=== PATIENT | female | born 1965 | race African-American/Black ===

== ENCOUNTER 2025-04-18 11:31 | Outpatient (CLI) | payer OTHER, SELFPAY ==
--- NOTE | ~2025-04-18 | XR_ITS ---
Cervical Spine: AP, lateral, open-mouth views Clinical History: Pain Findings: There is straightening of the normal cervical lordosis. No fracture. There is minimal grade 1 anterolisthesis of C4 over C5. There is moderate degenerative disc narrowing at C6-C7. There are m ild facet joint degenerative changes. Pre-vertebral soft tissues are unremarkable. Impression: Mild degenerative spondylosis. Minimal grade 1 anterolisthesis of C4 over C5. Reviewed, dictated and finalized at location . Impression: Mild degenerative spondylosis. Minimal grade 1 anterolisthesis of C4 over C5.
--- OUTSIDE RECORDS SUMMARY | 2025-04-18 11:57 | XMS_ITS | Data Portability ---
[facility] Organization [facility] Address [address] [place] [address] Care Team Providers Care Carpenters Helper Name Role Phone FABIANA KAT Primary Care Provider Assessment No assessment recorded. Plan of Treatment Reminders Order Date Submit Date Provider Last Modified By Organization Details Last Modified Time Details Appointments None recorded . Lab cobalami n and folate panel, serum 2024 025 JOSE Labhailey, [address], [place], [address], 5 06:20:07 CMP, serum or plasma 2024 025 JOSE oGodman, [address], [place], [address], 5 06:20:06 lipid panel, serum 2024 025 JOSE Goodman, [address], [place], [address], 5 06:20:04 HbA1c (hemoglo bin A1c), blood 2024 025 JOSE Goodman, [address], [address], [place], [address], 5 06:20:08 CBC 2024 025 JOSE Goodman, [address], [place], [address], 5 06:20:09 RPR (rapid plasma reagin), serum 2023 024 JOSE Goodman, [address], [address], [place], [address], 4 06:20:58 HIV 1 + 2, meaningf ul use set 2023 024 JOSE Goodman, [address], [place], [address], 4 06:20:58 chlamydi a trachoma tis + neisseri a gonorrho eae + trichomo lakshmi vaginali s DNA panel, MANASA+prob e, unspecif ied specimen 2023 024 JOSE Goodman, [address], [place], [address], 4 06:20:55 HBsAg (hepatit is B surface Ag), EIA, serum 2023 024 JOSE Goodman, [address], [address], [place], [address], 4 13:11:05 Hepatiti s C IgG Ab, qual, serum 2023 024 JOSE Goodman, [address], [address], [place], [address], 4 13:11:03 CMP, serum or plasma 2023 024 JOSE Goodman, [address], [address], [place], [address], 4 06:18:10 lipid panel, serum 2023 024 JOSE Goodman, [address], [address], [place], [address], 02/06/202 4 06:18:09 CBC 2023 024 [facility], [address], [place], [address], 4 06:18:10 HbA1c (hemoglo bin A1c), blood 2023 024 [facility], [address], [address], [place], [address], 4 06:20:57 TSH, ultra-se nsitive, serum 2023 024 [facility], [address], [address], [place], [address], 4 06:20:56 urinalys is complete , reflex culture 2023 024 [facility], [address], [place], [address], 4 06:20:57 Referral None recorded . Procedures nerve conducti on study/EM G, upper extremit y (PROC) 2024 025 [facility] -Nerve Conduction Study, [address] [facility] , [address], [place], [address], 5 16:33:19 nerve conducti on study/EM G, carpal tunnel syndrome (PROC) 2023 024 [facility] ([facility] Sched[facility]), [address] [place], [address], 4 09:11:17 Surgeries None recorded . Imaging XR, cervical spine 2024 025 [facility], [address], [place], [address], 5 16:18:14 Medication Orders Zithroma x Z-Gabriel 250 mg tablet 2024 025 [facility], [address] [place] [address], [address], 5 12:47:20 lidocain e 5 % topical patch 2024 025 [facility], [address] [place] [address], [address], 5 12:47:21 fluticas one propiona te 50 mcg/actu ation nasal spray,baird spension 2024 025 [facility], [address] [place] [address], [address], 5 12:47:17 amlodipi ne 10 mg tablet 2024 025 [facility], [address] [place] [address], [address], 5 12:47:21 carvedil ol 6.25 mg tablet 2024 025 [facility], [address] [place] [address], [address], 5 12:47:18 levothyr oxine 50 mcg tablet 2024 025 [facility], [address] [place] [address], [address], 5 12:47:20 cetirizi ne 10 mg tablet 2024 025 [facility], [address] [place] [address], [address], 5 11:06:56 lidocain e 5 % topical patch 2024 025 [facility], [address] [place], [address], 5 11:07:01 amlodipi ne 10 mg tablet 2024 025 [facility], [address] [place] [address], [address], 5 11:06:55 carvedil ol 6.25 mg tablet 2024 025 [facility], [address] [place] [address], [address], 5 11:06:58 levothyr oxine 50 mcg tablet 2024 025 [facility], [address] [place] [address], [address], 5 11:06:57 cetirizi ne 10 mg tablet 2022 023 [facility], [address] [place] [address], [address], 3 15:46:40 gabapent in 100 mg capsule [address] [facility], [address] [place] [address], [address], 5 11:01:00 fluticas one propiona te 50 mcg/actu ation nasal spray,baird spension 2022 023 [facility], [address] [place] [address], [address], 5 10:32:48 amlodipi ne 10 mg tablet 2022 023 [facility], [address] [place] [address], [address], 15:46:38 carvedil ol 6.25 mg tablet 2022 023 [facility] [address] [place] [address], [address], 15:46:37 levothyr oxine 50 mcg tablet 2022 023 [facility], [address] [place] [address], [address], 15:46:40 Patient TargetsNo targets recorded. Patient Instructions Encounter Date Encounter Id Patient Instructions Last Modified By Organization Details Last Modified Time 07/23/2023 [id number] A healthy lifestyle: care instructions [email or web address] Not available 07/23/2023 15:46:29 11/24/2023 [id number] headache: care instructions [email or web address] Not available 11/24/2023 12:54:41 A healthy lifestyle: care instructions [email or web address] Not available 11/24/2023 12:54:41 11/10/2024 [id number] back care and preventing injuries: care instructions [email or web address] Not available 11/10/2024 11:06:45 learning about high blood pressure [email or web address] Not available 11/10/2024 11:06:46 hypothyroidism: care instructions [email or web address] Not available 11/10/2024 11:06:45 01/10/2025 [id number] back care and preventing injuries: care instructions Not available 01/10/2025 12:20:43 learning about high blood pressure [email or web address] Not available 01/10/2025 12:20:43 A healthy lifestyle: care instructions [email or web address] Not available 01/11/2025 10:16:45 hypothyroidism: care instructions [email or web address] Not available 01/10/2025 12:20:43 04/12/2025 [id number] allergies: care instructions [email or web address] Not available 04/12/2025 12:47:11 Reason for Referral None Reported. Results Created Date Observation Date Name Description Value Unit Range Abnormal Flag Note LastModifiedBy Organization Detail LastModifiedTime 11/24/192024 LIPID PANEL cholesterol, total 175 mg/dL 100-19 9 Not Available [facility] [address] [place] [address], [address], 11/25/2023 06:18:09 11/24/19 24 11/24/2023 LIPID PANEL triglyceride s 85 mg/dL 0-149 Not Available [facility] [address] [place] [address], [address], 11/25/2023 06:18:09 11/24/19 24 11/24/2023 LIPID PANEL HDL cholesterol 42 mg/dL 40-999 Not Available [facility] [address] [place] [address], [address], 11/25/2023 06:18:09 11/24/19 24 11/24/2023 LIPID PANEL VLDL cholesterol vera 17 mg/dL 5-40 Not Available [facility] [address] [place] [address], [address], 11/25/2023 06:18:09 11/24/19 24 11/24/2023 LIPID PANEL LDL chol calc (nih) 127 mg/dL 0-99 above high normal Not Available [facility] [address] [place] [address], [address], 11/25/2023 06:18:09 11/24/19 24 11/24/2023 COMP. METAB OLIC PANEL (14) glucose 81 mg/dL 70-99 Not Available [facility] [address] [place], [address], 11/25/2023 06:18:10 11/24/19 24 11/24/2023 COMP. METAB OLIC PANEL (14) BUN 11 mg/dL 6-24 Not Available [facility] [address] [place], [address], 11/25/2023 06:18:10 11/24/19 24 11/24/2023 COMP. METAB OLIC PANEL (14) creatinine 0.75 mg/dL 0.76-1 .27 below low normal Not Available [facility] [address] [place] [address], [address], 11/25/2023 06:18:10 11/24/19 24 11/24/2023 COMP. METAB OLIC PANEL (14) eGFR 93 >=60 Units for eGFR value s are mL/mi n/1.7 3 The eGFR Calcu latio n has not been valid ated for patie nts under the age of 18. If test resul ts are displ ayed for a patie nt under the age of 18, disre cj that value . Not Available [facility] [address] [place] [address], [address], 11/25/2023 06:18:10 11/24/19 24 11/24/2023 COMP. METAB OLIC PANEL (14) BUN/creatini ne ratio 14 9-23 Not Available [facility] [address] [place] [address], [address], 11/25/2023 06:18:10 11/24/19 24 11/24/2023 COMP. METAB OLIC PANEL (14) sodium 142 mmol/ L 134-14 4 Not Available [facility] [address] [place] [address], [address], 11/25/2023 06:18:10 11/24/19 24 11/24/2023 COMP. METAB OLIC PANEL (14) potassium 4.4 mmol/ L 3.5-5. 2 Not Available [facility] [address] [place] [address], [address], 11/25/2023 06:18:10 11/24/19 24 11/24/2023 COMP. METAB OLIC PANEL (14) chloride 104 mmol/ L 96-106 Not Available [facility] [address] [place] [address], [address], 11/25/2023 06:18:10 11/24/19 24 11/24/2023 COMP. METAB OLIC PANEL (14) carbon dioxide, total 23 mmol/ L 20-29 Not Available [facility] [address] [place], [address], 11/25/2023 06:18:10 11/24/19 24 11/24/2023 COMP. METAB OLIC PANEL (14) calcium 9.4 mg/dL 8.7-10 .2 Not Available [facility] [address] [place], [address], 11/25/2023 06:18:10 11/24/19 24 11/24/2023 COMP. METAB OLIC PANEL (14) protein, total 7.8 g/dL 6.0-8. 5 Not Available [facility] [address] [place], [address], 11/25/2023 06:18:10 11/24/19 24 11/24/2023 COMP. METAB OLIC PANEL (14) albumin 4.3 g/dL 3.8-4. 9 Not Available [facility] [address] [place], [address], 11/25/2023 06:18:10 11/24/19 24 11/24/2023 COMP. METAB OLIC PANEL (14) globulin, total 3.5 g/dL 1.5-4. 5 Not Available [facility] [address] [place], [address], 11/25/2023 06:18:10 11/24/19 24 11/24/2023 COMP. METAB OLIC PANEL (14) A/G ratio 1.2 1.2-2. 2 Not Available [facility] [address] [place], [address], 11/25/2023 06:18:10 11/24/19 24 11/24/2023 COMP. METAB OLIC PANEL (14) bilirubin, total 0.3 mg/dL 0.0-1. 2 Not Available [facility] [address] [place], [address], 11/25/2023 06:18:10 11/24/19 24 11/24/2023 COMP. METAB OLIC PANEL (14) alkaline phosphatase 118 IU/L 44-121 Not Available [facility] [address] [place], [address], 11/25/2023 06:18:10 11/24/19 24 11/24/2023 COMP. METAB OLIC PANEL (14) AST (SGOT) 21 IU/L 0-40 Not Available [facility] Department [address] [place], [address], 11/25/2023 06:18:10 11/24/19 24 11/24/2023 COMP. METAB OLIC PANEL (14) ALT (SGPT) 24 IU/L 0-32 Not Available [facility] Department [address] [place], [address], 11/25/2023 06:18:10 11/24/19 24 11/24/2023 CBC, PLATE LET, NO DIFFE RENTI AL WBC 7.7 x10e3 /uL 3.4-10 .8 Not Available [facility] [address] [place], [address], 11/25/2023 06:18:10 11/24/19 24 11/24/2023 CBC, PLATE LET, NO DIFFE RENTI AL RBC 4.62 x10e6 /uL 3.77-5 .28 Not Available [facility] [address] [place], [address], 11/25/2023 06:18:10 11/24/19 24 11/24/2023 CBC, PLATE LET, NO DIFFE RENTI AL hemoglobin 14.3 g/dL 11.1-1 5.9 Not Available [facility] [address] [place], [address], 11/25/2023 06:18:10 11/24/19 24 11/24/2023 CBC, PLATE LET, NO DIFFE RENTI AL hematocrit 45.6 % 34.0-4 6.6 Not Available [facility] [address] [place], [address], 11/25/2023 06:18:10 11/24/19 24 11/24/2023 CBC, PLATE LET, NO DIFFE RENTI AL MCV 99 fL 79-97 above high normal Not Available [facility] [address] [place], [address], 11/25/2023 06:18:10 11/24/19 24 11/24/2023 CBC, PLATE LET, NO DIFFE RENTI AL MCH 31.0 pg 26.6-3 3.0 Not Available [facility] [address] [place], [address], 11/25/2023 06:18:10 11/24/1911/24/2023 CBC, PLATE LET, NO DIFFE RENTI AL MCHC 31.4 g/dL 31.5-3 5.7 below low normal Not Available [facility] [address] [place], [address], 11/25/2023 06:18:10 11/24/1911/24/2023 CBC, PLATE LET, NO DIFFE RENTI AL RDW 14.5 % 11.5-1 4.5 Not Available [facility] [address] [place], [address], 11/25/2023 06:18:10 11/24/1911/24/2023 CBC, PLATE LET, NO DIFFE RENTI AL platelets 269 x10e3 /uL 150-45 0 Mean Plate let Volum e 12.4 fL 8.9-1 2.7 N Not Available [facility] [address] [place], [address], 11/25/2023 06:18:10 11/24/19 24 11/24/2023 CBC, PLATE LET, NO DIFFE RENTI AL NRBC 0 % 0-0 Not Available [facility] [address], [place], [address], 11/25/2023 06:18:10 11/24/19 24 11/25/2023 HCV ANTIB KENZIE RFX TO QUANT PCR HCV Ab Non Reacti ve nonrea ctive Not Available [facility] ([facility]) [address] [place], [address], 11/25/2023 13:11:03 11/24/19 24 11/25/2023 HBSAG SCREE N HBsAg screen Negati ve negati ve Not Available [facility] ([facility]) [address] [place], [address], 11/25/2023 13:11:05 11/24/19 24 11/26/2023 CT, NG, TRICH VAG BY MANASA chlamydia by MANASA Negati ve negati ve Not Available [facility] ([facility]) [address] [place], [address], 11/26/2023 06:20:55 11/24/19 24 11/26/2023 CT, NG, TRICH VAG BY MANASA gonococcus by MANASA Negati ve negati ve Not Available [facility] ([facility]) [address] [place], [address], 11/26/2023 06:20:55 11/24/19 24 11/26/2023 CT, NG, TRICH VAG BY MANASA trich vag by MANASA Negati ve negati ve Not Available [facility] ([facility]) [address] [place], [address], 11/26/2023 06:20:55 11/24/19 24 11/25/2023 TSH RFX ON ABNOR MAL TO FREE T4 TSH 3.200 uIU/m L 0.450- 4.500 Not Available [facility] ([facility]) [address] [place], [address], 11/26/2023 06:20:56 11/24/19 24 11/25/2023 UA/M W/RFL X CULTU RE, ROUTI NE specific gravity 1.026 1.005- 1.030 Not Available [facility] ([facility]) [address] [facility], [place], [address], 11/26/2023 06:20:56 11/24/19 24 11/25/2023 UA/M W/RFL X CULTU RE, ROUTI NE pH 5.5 5.0-7. 5 Not Available [facility] ([facility]) [address] [facility], [place], [address], 11/26/2023 06:20:56 11/24/19 24 11/25/2023 UA/M W/RFL X CULTU RE, ROUTI NE urine-color Yellow yellow Not Available [facility] ([facility]) [address] [facility], [place], [address], 11/26/2023 06:20:56 11/24/19 24 11/25/2023 UA/M W/RFL X CULTU RE, ROUTI NE appearance Cloudy clear abnormal Not Available [facility] ([facility]) [address] [facility], [place], [address], 11/26/2023 06:20:56 11/24/19 24 11/25/2023 UA/M W/RFL X CULTU RE ROUTCarrie NE WBC esterase Negati ve negati ve Not Available [facility] ([facility]) [address] [place], [address], 11/26/2023 06:20:56 11/24/19 24 11/25/2023 UA/M W/RFL X CULTU RE, ROUTI NE protein 1+ negati ve/tra ce abnormal Not Available [facility] ([facility]) [address] [place], [address], 11/26/2023 06:20:56 11/24/19 24 11/25/2023 UA/M W/RFL X CULTU RE, ROUTI NE glucose Negati ve negati ve Not Available [facility] ([facility]) [address] [place], [address], 11/26/2023 06:20:56 11/24/19 24 11/25/2023 UA/M W/RFL X CULTU RE, ROUTI NE ketones Trace negati ve abnormal Not Available [facility] ([facility]) [address] [place], [address], 11/26/2023 06:20:56 11/24/19 24 11/25/2023 UA/M W/RFL X CULTU RE, ROUTI NE occult blood Negati ve negati ve Not Available [facility] ([facility]) [address] [place], [address], 11/26/2023 06:20:56 11/24/19 24 11/25/2023 UA/M W/RFL X CULTU RE, ROUTI NE bilirubin TNP Test not perfo rmed. Unabl e to perfo rm test due to curre nt unava ilabi lity of reage nts. Not Available [facility] ([facility]) [address] [place], [address], 11/26/2023 06:20:56 11/24/19 24 11/25/2023 UA/M W/RFL X CULTU RE, ROUTI NE urobilinogen ,semi-qn 1.0 mg/dL 0.2-1. 0 Not Available [facility] ([facility]) [address] [place], [address], 11/26/2023 06:20:56 11/24/19 24 11/25/2023 UA/M W/RFL X CULTU RE, ROUTI NE nitrite, urine Negati ve negati ve Not Available [facility] ([facility]) [address] [place], [address], 11/26/2023 06:20:56 11/24/19 24 11/25/2023 UA/M W/RFL X CULTU RE, ROUTI NE microscopic examination See below: Micro scopi c was indic ated and was perfo rmed. Not Available [facility] ([facility]) [address] [place], [address], 11/26/2023 06:20:56 11/24/19 24 11/25/2023 UA/M W/RFL X CULTU RE, ROUTI NE urinalysis reflex Commen t This speci men will not refle x to a Urine Cultu re. Not Available [facility] ([facility]) [address] [place], [address], 11/26/2023 06:20:56 11/24/19 24 11/25/2023 HEMOG LOBIN A1C hemoglobin A1C 6.1 % 4.8-5. 6 above high normal Predi abete s: 5.7 - 6.4 Diabe yovanny: >6.4 Glyce gwyn contr ol for adult s with diabe yovanny: <7.0 Not Available [facility] ([facility]) [address] [place], [address], 11/26/2023 06:20:57 11/24/19 24 11/25/2023 RPR, RFX QN RPR/C ONFIR M TP RPR Non Reacti ve nonrea ctive Not Available [facility] ([facility]) [address] [place], [address], 11/26/2023 06:20:58 11/24/19 24 11/25/2023 HIV AB/P2 4 AG WITH REFLE X HIV Ab/P24 Ag screen Non Reacti ve nonrea ctive HIV Negat lilly HIV-1 /HIV- 2 antib odies and HIV-1 p24 antig en were NOT detec millie. There is no labor atory evide nce of HIV infec tion. Not Available [facility] ([facility]) [address] [place], [address], 11/26/2023 06:20:58 11/24/19 24 11/25/2023 INTER PRETA TION: interpretati on: Commen t Not infec millie with HCV unles s early or acute infec tion is suspe cted (whic h may be delay ed in an immun ocomp romis ed indiv idual ), or other evide nce exist s to indic ate HCV infec tion. Not Available [facility] ([facility]) [address] [facility], [place], [address], 11/25/2023 13:11:02 11/24/19 24 11/25/2023 MICRO SCOPI C EXAMI NATIO N WBC 0-5 /hpf 0-5 Not Available [facility] ([facility]) [address] [facility], [place], [address], 11/26/2023 06:20:56 11/24/19 24 11/25/2023 MICRO SCOPI C EXAMI NATIO N RBC 0-2 /hpf 0-2 Not Available [facility] ([facility]) [address] [facility], [place], [address], 11/26/2023 06:20:56 11/24/19 24 11/25/2023 MICRO SCOPI C EXAMI NATIO N epithelial cells (non renal) >10 /hpf 0-10 abnormal Not Available [facility] ([facility]) [address] [facility], [place], [address], 11/26/2023 06:20:56 11/24/19 24 11/25/2023 MICRO SCOPI C EXAMI NATIO N casts None seen /lpf nonese en Not Available [facility] ([facility]) [address] [facility], [place], [address], 11/26/2023 06:20:56 11/24/19 24 11/25/2023 MICRO SCOPI C EXAMI NATIO N bacteria Few nonese en/few Not Available [facility] ([facility]) [address] [place], [address], 11/26/2023 06:20:56 11/10/19 25 11/11/2024 LIPID PANEL cholesterol, total 169 mg/dL 100-19 9 Not Available [facility] ([facility]) [address] [place], [address], 11/11/2024 06:20:04 11/10/19 25 11/11/2024 LIPID PANEL triglyceride s 100 mg/dL 0-149 Not Available [facility] ([facility]) [address] [place], [address], 11/11/2024 06:20:04 11/10/19 25 11/11/2024 LIPID PANEL HDL cholesterol 36 mg/dL >39 below low normal Not Available [facility] ([facility]) [address] [place], [address], 11/11/2024 06:20:04 11/10/19 25 11/11/2024 LIPID PANEL VLDL cholesterol vera 19 mg/dL 5-40 Not Available [facility] ([facility]) [address] [place], [address], 11/11/2024 06:20:04 11/10/19 25 11/11/2024 LIPID PANEL LDL chol calc ([facility]) 114 mg/dL 0-99 above high normal Not Available [facility] ([facility]) [address] [place], [address], 11/11/2024 06:20:04 11/10/19 25 11/11/2024 COMP. METAB OLIC PANEL (14) glucose 91 mg/dL 70-99 Not Available [facility] ([facility]) [address] [place], [address], 11/11/2024 06:20:05 11/10/19 25 11/11/2024 COMP. METAB OLIC PANEL (14) BUN 8 mg/dL 6-24 Not Available [facility] ([facility]) [address] [facility] [place], [address], 11/11/2024 06:20:05 11/10/19 25 11/11/2024 COMP. METAB OLIC PANEL (14) creatinine 0.81 mg/dL 0.57-1 .00 Not Available [facility] ([facility]) [address] [facility] [place], [address], 11/11/2024 06:20:05 11/10/19 25 11/11/2024 COMP. METAB OLIC PANEL (14) eGFR 85 mL/mi n/1.7 3 >59 Not Available [facility] ([facility]) [address] [facility] [place], [address], 11/11/2024 06:20:05 11/10/19 25 11/11/2024 COMP. METAB OLIC PANEL (14) BUN/creatini ne ratio 10 9-23 Not Available [facility] ([facility]) [address] [facility] [place], [address], 11/11/2024 06:20:05 11/10/19 25 11/11/2024 COMP. METAB OLIC PANEL (14) sodium 143 mmol/ L 134-14 4 Not Available [facility] ([facility]) [address] [facility] [place], [address], 11/11/2024 06:20:05 11/10/19 25 11/11/2024 COMP. METAB OLIC PANEL (14) potassium 4.7 mmol/ L 3.5-5. 2 Not Available [facility] ([facility]) [address] [facility] [place], [address], 11/11/2024 06:20:05 11/10/19 25 11/11/2024 COMP. METAB OLIC PANEL (14) chloride 106 mmol/ L 96-106 Not Available [facility] ([facility]) [address] [place], [address], 11/11/2024 06:20:05 11/10/19 25 11/11/2024 COMP. METAB OLIC PANEL (14) carbon dioxide, total 26 mmol/ L Not Available [facility] ([facility]) [address] [place], [address], 11/11/2024 06:20:05 11/10/19 25 11/11/2024 COMP. METAB OLIC PANEL (14) calcium 9.4 mg/dL 8.7-10 .2 Not Available [facility] ([facility]) [address] [place], [address], 11/11/2024 06:20:05 11/10/19 25 11/11/2024 COMP. METAB OLIC PANEL (14) protein, total 7.1 g/dL 6.0-8. 5 Not Available [facility] ([facility]) [address] [place], [address], 11/11/2024 06:20:05 11/10/19 25 11/11/2024 COMP. METAB OLIC PANEL (14) albumin 4.0 g/dL 3.8-4. 9 Not Available [facility] ([facility]) [address] [place], [address], 11/11/2024 06:20:05 11/10/19 25 11/11/2024 COMP. METAB OLIC PANEL (14) globulin, total 3.1 g/dL 1.5-4. 5 Not Available [facility] ([facility]) [address] [place], [address], 11/11/2024 06:20:05 11/10/19 25 11/11/2024 COMP. METAB OLIC PANEL (14) bilirubin, total 0.3 mg/dL 0.0-1. 2 Not Available [facility] ([facility]) [address] [place], [address], 11/11/2024 06:20:05 11/10/19 25 11/11/2024 COMP. METAB OLIC PANEL (14) alkaline phosphatase 131 IU/L 44-121 above high normal Not Available [facility] ([facility]) [address] [place], [address], 11/11/2024 06:20:05 11/10/19 25 11/11/2024 COMP. METAB OLIC PANEL (14) AST (SGOT) 19 IU/L 0-40 Not Available [facility] ([facility]) [address] [place], [address], 11/11/2024 06:20:05 11/10/19 25 11/11/2024 COMP. METAB OLIC PANEL (14) ALT (SGPT) 21 IU/L 0-32 Not Available [facility] ([facility]) [address] [place], [address], 11/11/2024 06:20:05 11/10/19 25 11/11/2024 VITAM IN B12 AND FOLAT E vitamin B12 557 pg/mL 232-12 45 Not Available [facility] ([facility]) [address] [place], [address], 11/11/2024 06:20:07 11/10/19 25 11/11/2024 VITAM IN B12 AND FOLAT E folate (folic acid), serum 9.6 NG/mL >3.0 A serum folat e marti ntrat ion of less than 3.1 ng/mL is consi dered to repre sent clini vera defic iency . Not Available [facility] ([facility]) [address] [place], [address], 11/11/2024 06:20:07 11/10/19 25 11/11/2024 HEMOG LOBIN A1C hemoglobin A1C 6.5 % 4.8-5. 6 above high normal Predi abete s: 5.7 - 6.4 Diabe yovanny: >6.4 Glyce gwyn contr ol for adult s with diabe yovanny: <7.0 Not Available [facility] ([facility]) [address] [facility], [place], [address], 11/11/2024 06:20:08 11/10/19 25 11/10/2024 CBC, PLATE LET, NO DIFFE RENTI AL WBC 7.9 x10e3 /uL 3.4-10 .8 Not Available [facility] ([facility]) [address] [facility], [place], [address], 11/11/2024 06:20:09 11/10/1911/10/2024 CBC, PLATE LET, NO DIFFE RENTI AL RBC 4.36 x10e6 /uL 3.77-5 .28 Not Available [facility] ([facility]) [address] [facility], [place], [address], 11/11/2024 06:20:09 11/10/1911/10/2024 CBC, PLATE LET, NO DIFFE RENTI AL hemoglobin 14.0 g/dL 11.1-1 5.9 Not Available [facility] ([facility]) [address] [place], [address], 11/11/2024 06:20:09 11/10/1911/10/2024 CBC, PLATE LET, NO DIFFE RENTI AL hematocrit 42.3 % 34.0-4 6.6 Not Available [facility] ([facility]) [address] [facility], [place], [address], 11/11/2024 06:20:09 11/10/1911/10/2024 CBC, PLATE LET, NO DIFFE RENTI AL MCV 97 fL 79-97 Not Available [facility] ([facility]) [address] [place], [address], 11/11/2024 06:20:09 11/10/1911/10/2024 CBC, PLATE LET, NO DIFFE RENTI AL MCH 32.1 pg 26.6-3 3.0 Not Available [facility] ([facility]) [address] [facility], [place], [address], 11/11/2024 06:20:09 11/10/19 25 11/10/2024 CBC, PLATE LET, NO DIFFE RENTI AL MCHC 33.1 g/dL 31.5-3 5.7 Not Available [facility] ([facility]) [address] [facility], [place], [address], 11/11/2024 06:20:09 11/10/19 25 11/10/2024 CBC, PLATE LET, NO DIFFE RENTI AL RDW 12.3 % 11.7-1 5.4 Not Available [facility] ([facility]) [address] [facility], [place], [address], 11/11/2024 06:20:09 11/10/19 25 11/10/2024 CBC, PLATE LET, NO DIFFE RENTI AL platelets 281 x10e3 /uL 150-45 0 Not Available [facility] ([facility]) [address] [facility], [place], [address], 11/11/2024 06:20:09 09/19/20 24 09/19/2024 CT, lumba r spine , w/o contr ast No observ ation record ed. [facility] [address] [place], [address], 10/22/2024 10:21:43 09/19/20 24 09/19/2024 CT, abdom en + pelvi s, w/ contr ast No observ ation record ed. [facility] [address] [place], [address], 10/22/2024 10:21:01 Result Notes None recorded. 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 Active 2019 ZARIA RAMIREZ Attn: Accounting ,[address] [facility], [place], [address] , [place] [facility] 2 12:55:23 Serous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 scheduled by ptwork on diet/exerc ise for weight lossf/u yearly and prn Active or passive immunization 653991486 Z23 tdap today [id number] MD Deondre Mendez (Adult Med) [address] [place] [address] [phone] 0 12/29/2018 10:05:38 12/30/2018 11:41:31 Blood glucose outside reference range 668821997 R73.09 Hypothyroidism 80486670 E03.9 Essential hypertension 39306883 I10 [id number] ZARIA CLAROS (Adult Med) [address] [place] [address] [phone] 0 05/12/2019 10:02:22 05/13/2019 09:55:35 Body mass index 40+ - severely obese 269233439 Z68.41 -Discussed lifestyle modificati ons including 150 minutes moderate intensity exercise per week, restrictin g intake of fast/proce ssed foods, sweets, sugary beverages. Essential hypertension 63797298 I10 BP Today: 122/70 c/w amlodipine 5 mg and carvedilol 6.25 mg Discussed DASH diet Advised 30 minutes of exercise minimum daily Advised tobacco, alcohol, caffeine all increase BP Advised goal for BP is <140/90 Contact office if BP is > 140/90 consistent ly DIscussed consequenc es of HTN including kidney, eye, heart damage, stroke, and even RTC 6 months for BP check Ganglion cyst 94609159 M 67.40 On the lateral aspect of right wrist, present x 2 weeks, has increased in size, not TTP on exam- Discussed options with patient, these usually go away on their own, surgical removal if bothersome or continues to increase in size- Will give patient wrist brace to help stabilize wrist, decreased ROM may help stabilize or even decrease cyst size- Handout regarding cyst given to patient- Allow orthopedic physician to evaluate Pain in left knee 207024 6694 21087 M25.562 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, heard a 'POP' and has had anterior left knee pain and swelling sinceHx of left knee meniscus tear and surgical repair- Will order xray to rule out acute fracture of patella, may need MRI to rule out soft tissue injury- Will set patient up with orthopedic s- Patient to rest affected leg, ice affected area, take ibuprofen to help with pain and swelling [id number] ZARIA CLAROS [facility] (Adult Med) [address] [place] [address] [phone] 0 03/27/2020 09:06:11 03/28/2020 13:45:45 Pain in left knee 3117484892 55844 M25.562 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 Currently getting knee injections which are providing temporary relief.Hx of left knee meniscus tear and surgical repair- continue to follow with orthopedic s Ganglion cyst 33292915 M 67.40 On the lateral aspect of right wristState s the cyst finally disappeare d this past month. Denies pain due to the cyst, and numbness/w eakness of hand and fingers. Essential hypertension 72841942 I10 BP Today: unable to check today c/w amlodipine 5 mg and carvedilol 6.25 mg Doing well, needs refills, asymptomat icDiscusse d DASH diet Advised 30 minutes of exercise minimum daily Advised tobacco, alcohol, caffeine all increase BP Advised goal for BP is <140/90 Contact office if BP is > 140/90 consistent ly DIscussed consequenc es of HTN including kidney, eye, heart damage, stroke, and even - will refill medication s-RTC 6 months for BP check Body mass index 40+ - severely obese 921903650 Z68.41 -Discussed lifestyle modificati ons including 150 minutes moderate intensity exercise per week, restrictin g intake of fast/proce ssed foods, sweets, sugary beverages. Hypothyroidism 01845857 E03.9 Currently taking levo 50 mcgOn 09/07, TSH high and T4 normal- continue with medication Ex-smoker 7922027 Z87.89 1 Quit smoking 2 months ago [id number] MD Deondre Esteban (MEDICAL SERVICES COORDINATOR) [address] [place] [address] [phone] 0 05/30/2020 08:13:39 05/31/2020 07:58:57 Screening mammography 47197853 Z12.31 Body mass index 40+ - severely obese 151863319 Z68.41 Essential hypertension 61413323 I10 Hypothyroidism 10160406 E03.9 Menopausal syndrome 1237 40423 N95.9 Prediabetes 627174445 R7 3.03 Menopause 517548791 N95. 1 [id number] MD Deondre Mendez (Adult Med) [address] [place] [address] [phone] 0 10/10/2020 08:41:48 10/11/2020 12:03:33 Essential hypertension 19485465 I10 [id number] MD Deondre Mendez (Adult Med) [address] [place] [address] [phone] 0 11/20/2020 08:27:01 11/21/2020 08:50:48 Serous otitis media of bilateral ears 6242547342 403230 H65.93 Dizziness 170723267 R42 Essential hypertension 19699571 I10 Hypothyroidism 05408142 E03.9 [id number] MD Deondre Mendez (Adult Med) [address] [place] [address] [phone] 0 01/17/2021 11:44:21 01/17/2021 12:47:28 Serous otitis media of bilateral ears 7629785206 162108 H65.93 Hypothyroidism 67771768 E03.9 Essential hypertension 29915998 I10 Dizziness 684174537 R42 Body mass index 40+ - severely obese 945443186 Z68.41 Pain of ri ght shoulder joint 7741506763 5744429 M25.751 [id number] [facility] ([facility]) [address] [place] [address] [phone] 0 01/29/2021 14:15:45 01/30/2021 12:15:51 Serous otitis media of bilateral ears 4088301999 097567 H65.93 Essential hypertension 45286130 I10 BP164/110 at nurse visit today. Pt feels dizzy. Will increase amlodipine to 10 mg/d Hypothyroidism 91690521 E03.9 Prediabetes 292277849 R7 3.03 Pain of ri ght shoulder joint 9005345456 8636101 M25.968 [id number] MD Deondre Mendez (Adult Med) [address] [place] [address] [phone] 0 02/12/2021 10:06:58 02/13/2021 11:49:03 Blood pressure taking 29731050 Z01.30 [id number] MD Deondre Mendez (Adult Med) [address] [place] [address] [phone] 0 03/12/2021 09:47:55 03/13/2021 13:36:03 Serous otitis media of bilateral ears 4087624381 146466 H65.93 Hypothyroidism 13019137 E03.9 Headache 16613198 R51.9 Essential hypertension 29175562 I10 BP164/110 at nurse visit today. Pt feels dizzy. Will increase amlodipine to 10 mg/d Body mass index 40+ - severely obese 532813891 Z68.41 Allergic rhinitis 306370 04 J30.9 [id number] Fabiana Kat MD [facility] (Adult Med) [address] [place] [address] 11/01/2021 10:21:10 11/02/2021 12:18:54 Essential hypertension 75004442 I10 Hypothyroidism 31610163 E03.9 Serous alicia tis media of bilateral ears 0777099481 665907 H65.93 Allergic rhinitis 308742 04 J30.9 Body mass index 40+ - severely obese 589869383 Z68.41 Disorder of left ear 434 2215018 704285 H93.92 [id number] Ivan funk MD [facility] [address] [place] [address] 04/03/2022 10:39:35 04/04/2022 13:04:40 Venereal disease screening 296973762 Z11.3 check for STDs, BV, bonny Screening for malignant neoplasm of breast 971903224 Z12.39 due for mammo Vaginal irritation 65857 6004 N89.8 x1 mo, a/w white dischargew ears vaginal pad for dischargeu ses vaginal wash, spray, and deodorants prays underwear with perfumecon cerned she is going to smelldeni es abnormal vagina odor or UA sxPEx- nlurine dip nlsent urine for STD and nu swab for BV/bonny advised pt to stop using vaginal products, most likely causing irritation ok to use padcan use nystatin for irritation to inguinal folds Depression screening 171 256884 Z13.31 PHQ 0 [id number] Ivan funk MD [facility] [address] [place] [address] 04/12/2022 11:05:08 04/15/2022 11:45:35 Screening for malignant neoplasm of cervix 242984262 Z12.4 h/o tubal ligation, salpingo-o ophorectom y 20+ yrs ago, has uteruslast pap >4 yrs ago, no h/o abnormalsr ecently diagnosed with trichomoni asis, on flagylPEx- cervix is erythemato us, friable, CMT, white discharge surroundin g cervixsamp le taken for pap smearencou raged to take full course of abxf/u in 7-14 days after abx for RALF Screening for malignant neoplasm of breast 929462833 Z12.39 due for mammogave order on 04/03/22 [id number] Fabiana Kat MD [facility] (Adult Med) [address] [place] [address] 07/01/2022 09:59:31 07/02/2022 09:33:53 Essential hypertension 90617371 I10 Hypothyroidism 82708023 E03.9 Prediabetes 631678258 R7 3.03 [id number] Ivan funk MD [facility] [address] [place] [address] 09/03/2022 11:52:49 09/04/2022 14:27:20 Low back pain 427633733 M54.50 x2 wksWent to ED for sx, was given lidocaine patches and flexerilUn able to take flexeril due to somnolence Mild improvemen t with lidocaine patchesco nstant achingdoi 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 than normallift ing heavy boxes in her basementde nies any trauma or injuryusin g NSAIDs PRNPEx- limited ROM of lumbar spine due to pain, point tenderness to lumbar spineoffer ed XR and PT referral, pt refused at this timeencour aged stretching and taking NSAIDs, heating pad, ICEf/u with any new or worsening sx Vaginal odor 281262527 N 89.8 condom broke with sexual partnerpar tner gave pt trich infection 5 months agoconcern ed for vaginal odorpt would like to be checked for STDssent urineurine dip nl Contraception care 91758 5008 Z30.40 LMP at age 31h/o tubal ligation, salpingo-o ophorectom y 20+ yrs ago, has uterusper Dr. Stephen' s note from 2017: on norethindr one due to menorrhagi a, post hysterosco py with endometria l ablation dilation and curettage 04/07/17; Patient is to remain on norethindr one for at least 2 years.sto p norethindr sunil [id number] MD Deondre Mendez (Adult Med) [address] [place] [address] [phone] 0 11/26/2022 10:31:59 12/03/2022 14:30:18 Body mass index 40+ - severely obese 619545130 Z68.41 Morbid obesity 660777641 E66.01 Tingling pain 241336874 R52 [id number] Ivan funk MD [facility] [address] [place] [address] 05/26/2023 15:03:14 05/26/2023 15:50:46 Acute urinary tract infection 355098829 N39.0 [id number] MD Deondre Mendez (Adult Med) [address] [place] [address] 04814-140 0 07/23/2023 10:49:56 07/25/2023 09:24:17 Morbid obesity 656835869 E66.01 Essential hypertension 26486339 I10 Allergic rhinitis 718850 04 J30.9 Tingling pain 420270902 R52 Hypothyroidism 26719891 E03.9 Serous alicia tis media of bilateral ears 8149302091 989808 H65.93 [id number] MD Deondre Mendez (Adult Med) [address] [place] [address] 83080-986 0 11/24/2023 11:46:27 12/04/2023 09:55:27 Morbid obesity 145047556 E66.01 Headache 44380109 R51.9 Adult heal th examination 398727429 Z00.00 Venereal d isease screening 623236346 Z11.3 Paresthesia of hand 3090 38838 R20.2 [id number] MD Deondre Mendez (Adult Med) [address] [place] [address] [phone] 0 11/10/2024 10:09:48 11/27/2024 10:22:23 Essential hypertension 18655544 I10 Hypothyroidism 81789163 E03.9 Prediabetes 637237770 R7 3.03 Adult heal th examination 427429301 Z00.00 Paresthesia of hand 3090 88434 R20.2 Allergic rhinitis 563854 04 J30.9 Low back pain 294954907 M54.50 [id number] MD Deondre Mendez (Adult Med) [address] [place] [address] 01/10/2025 11:14:42 01/13/2025 14:41:22 Morbid obesity 178494935 E66.01 Essential hypertension 70999740 I10 Cont current meds Hypothyroidism 17855396 E03.9 Low back pain 081210978 M54.50 [id number] MD Deondre Mendez (Adult Med) [address] [place] [address] 04/12/2025 11:05:30 04/13/2025 10:27:21 Essential hypertension 27931718 I10 Cont current meds Hypothyroidism 55016517 E03.9 Low back pain 225374519 M54.50 Allergic rhinitis 384562 04 J30.9 Facial sinus finding 271 888605 R09.89 Serous alicia tis media of bilateral ears 3736835808 005155 H65.93 Health Concerns Section Related Observation LastModified by Organization Detai ls LastModified Time None Recorded Concern Status LastModified by Organization Details LastModified Time None Recorded Advance Directives Directive N: Payers Insurance Date Sequence Insurance Name Policy Number Policy Bermudez Covered Member ID Bermudez Member ID Guarantor Name 11/10/2024 1 [facility] [id number] Jennifer Wing [id number] Jennifer Wing 11/10/2024 1 [place] Jennifer Wing [id number] Jennifer Wing 11/10/2024 1 [facility] (PPO) [id number] Jennifer Wing [id number] Jennifer Wing 11/10/2024 1 [place] [id number] Jennifer Wing [id number] Jennifer Wing 04/09/2025 1 U[employer] [id number] Jennifer Wing [id number] Jennifer Wing Notes Date Note Type Note Provider Name and Address Organization Details Recorded Time 07/23/2023 text/html Here for ED f/u. Needs med refills. Seen in ED two days ago for dizziness Fabiana Kat MD Attn: Accounting,[address] [facility], [place], [address], [place] [facility] 07/23/2023 15:47:57 11/24/2023 text/html Was seen in the Ed for low back pain approximately one week ago. has question re urine findings(labs not available at present) Has persistent tingling in left wrist(noticed after receiving second Sars-C0V-2 vaccination) Fabiana Kat MD Attn: Accounting,[address] [facility], [place], [address], [place] [facility] 11/24/2023 12:55:41 11/10/2024 text/html Here for routine check up. Continues to have tingling in fingers Fabiana Kat MD Attn: Accounting,[address] [facility], [place], [address], [place] [facility] 11/10/2024 11:08:26 01/10/2025 text/html Her for f/u. Has been off gabapentin and feels better. Fabiana Kat MD Attn: Accounting,[address] [facility], [place], [address], [place] [facility] 01/10/2025 12:21:12 04/12/2025 text/html has rhinitis, difficulty hearing, cough with some production and frontal headache. Fabiana Kat MD Attn: Accounting,[address] [facility], [place], [address], [place] [facility] 04/12/2025 12:49:44 OBGyn Episode Ob Episode Information Episode Created Date Number of Fetuses Patient Bloodtype Patient rh Status Prepregnancy Weight lbs Domestic Partner Domestic Partner Phone Father Name Prestressed Concrete Laborer Status 03/12/20 17 1 CLOSED Fetus Data First Name Last Name Admitted to NICU Weight (g) Sex Living Outcome Pediatric Complications Fetus ID Race Codes Race Delivery Type 7789.96 5704 M Full Term 36440 Vaginal Prosper Calculation Initial Prosper Date Initial Exam Date Initial Exam Provider Initial Ultrasound Date Last Menstrual Period Date Ultra Sound Weeks Gestation 0 Eighteen To Twenty Week Prosper Update Ultra Sound Date Fundal Height At Umbil Quickening Date Ultra Sound Latest Weeks Gestation Final Prosper Confirmed By Final Prosper Confirmed Date Final Prosper Date Ultra Sound Latest Days Gestation 0 0 Menstrual History Last Menstrual Date Menses Monthly On Bcp Conception Prior Menses Frequency Hcg Plus Date Menarche Onset Age Delivery Information Delivery Date Delivery Type Labor Anesthesia Weeks Gestation Incision Type Labor Labor Length Hrs Delivered By Post Complications Tubal Sterilization Discharge Date Comments 3 General 40 false [place], [place] Discharge Information Feeding Method Contraceptive Method Maternal HG B and HCT Levels Ob Episode Information Episode Created Date Number of Fetuses Patient Bloodtype Patient rh Status Prepregnancy Weight lbs Domestic Partner Domestic Partner Phone Father Name Prestressed Concrete Laborer Status 03/12/20 17 1 CLOSED Fetus Data First Name Last Name Admitted to NICU Weight (g) Sex Living Outcome Pediatric Complications Fetus ID Race Codes Race Delivery Type 510.291 F Prematur e 88036 Vaginal Prosper Calculation Initial Prosper Date Initial Exam Date Initial Exam Provider Initial Ultrasound Date Last Menstrual Period Date Ultra Sound Weeks Gestation 0 Eighteen To Twenty Week Prosper Update Ultra Sound Date Fundal Height At Umbil Quickening Date Ultra Sound Latest Weeks Gestation Final Prosper Confirmed By Final Prosper Confirmed Date Final Prosper Date Ultra Sound Latest Days Gestation 0 0 Menstrual History Last Menstrual Date Menses Monthly On Bcp Conception Prior Menses Frequency Hcg Plus Date Menarche Onset Age Delivery Information Delivery Date Delivery Type Labor Anesthesia Weeks Gestation Incision Type Labor Labor Length Hrs Delivered By Post Complications Tubal Sterilization Discharge Date Comments 1 General 35 false Discharge Information Feeding Method Contraceptive Method Maternal HG B and HCT Levels
--- OUTSIDE RECORDS SUMMARY | 2025-04-18 11:57 | XMS_ITS | Clinical Summary ---
Author Organization [facility] Address [address] [place] [address] Care Team Providers Care Security Installation Technician Name Role Phone Unavailable Primary Care Provider Unavailabl e Source Comments [facility],non-owned Affiliates and Associated Physician Practices is amultiple site organization consisting of ambulatory clinics and hospital sitesin [place], [place], [place] and [place]. This disclosure is being madepursuant to the Care Everywhere program and may not contain all information available regarding this patient. Last updated 18.[facility] Allergies Active Allergy Reactions Criticality Noted Date Comments Erythromycin Urticaria,Swelling 05/13/2010 Medications * Be aware that medications may not be up to date on this document. Alwaysverify current medications with the patient. carvedilol (COREG) 6.25 MG tablet Take 6.25 mg by mouth 2 times daily with breakfast and dinner. Active amlodipine (NORVASC) 2.5 MG tablet Take 2.5 mg by mouth daily. *unsure dose Active conj estrog-medroxyp rogest naty (PREMPRO) 0.625-2.5 MG tablet Take 1 Tab by mouth daily. Active Active Problems Problem Noted Date Diagnosed Date Dizzy 05/13/2010 Social History Tobacco Use Types Packs/Day Years Used Date Smoking Tobacco: Every Day Cigarettes 0.5 20 Alcohol Use Standard Drinks/Week Comments No 0 (1 standard drink = 0.6 oz pur e alcohol) Comments Unknown Sex and Gender Information Value Date Recorded Sex Assigned at Not on file Legal Sex Female 5:33 AM SOFTWARE DEVELOPER Gender Identity Not on file Sexual Orientation Not on file Last Filed Vital Signs Vital Sign Reading Time Taken Comments Blood Pressure 101/73 05/13/2010 6:19 AM CDT Pulse 71 05/13/2010 6:19 AM CDT Temperature 36.9 C (98.5 F) 05/13/2010 4:32 AM CDT Respiratory Rate 16 05/13/2010 6:19 AM CDT Oxygen Saturation 97% 05/13/2010 6:19 AM CDT Inhaled Oxygen Concentration - - Weight 116.1 kg (256 lb) 05/13/2010 4:32 AM CDT Height 163.8 cm (5' 4.5) 05/13/2010 4:32 AM CDT Body Mass Index 43.26 05/13/2010 4:32 AM CDT Plan of Treatment Health Maintenance Due Date Last Done Comments COLOGUARD (AGES 45-75) - COL ON CA SCREENING 1966 COLON MONITORING 1966 COLONOSCOPY - COLON CA SCREENING 1966 CT COLONOGRAPHY - COLON CA SCREENING 1966 Colorectal Cancer Screening 1966 FIT - COLON CA SCREENING 1966 FLEX SIG - COLON CA SCREENING 1966 LIPID TESTING 1966 MAMMOGRAM 1966 HIV SCREENING 1981 HEPATITIS C SCREENING 12/12/1984 DTAP/TDAP/TD VACCINES (1 - Tdap) 1985 HEPATITIS B VACCINE (1 of 3 - 19+ 3-dose series) 1985 PNEUMOCOCCAL VACCINE 50+ (1 of 1 - PCV) 2016 ZOSTER VACCINE (1 of 2) 2016 COVID-19 VACCINE ( - 2023-2 5 season) 2024 DEPRESSION SCREENING 10/20/2024 INFLUENZA VACCINE (Season Ended) 2025 HIB VACCINE Aged Out No longer eligi ble based on patient's age to complete this topic HPV VACCINE Aged Out No longer eligi ble based on patient's age to complete this topic MENINGOCOCCAL (Group B) VACC INE SHARED DECISION-MAKING Aged Out No longer eligibl e based on patient's age to complete this topic MENINGOCOCCAL GROUPS A/C/Y/W VACCINE Aged Out No longer eligible b ased on patient's age to complete this topic
--- OUTSIDE RECORDS SUMMARY | 2025-04-18 11:57 | XMS_ITS | Clinical Summary ---
Author Organization [facility] Address [address] [place], [place] [id number] Phone [email or web address] Care Team Providers Care Prepared Foods Service Team Member Name Role Phone Unavailable Primary Care Provider Unavailabl e Social History Tobacco Use Types Packs/Day Years Used Date Smoking Tobacco: Never Assessed Intimate Partner Violence Answer Date R ecorded Insults You Not on file 11/02/2021 Threatens You Not on file 11/02/2021 Screams at You Not on file 11/02/2021 Physically Hurt Not on file 11/02/2021 Intimate Partner Violence Score Not on file 11/02/2021 Stress Answer Date Recorded Stress in your Life Not on file 08/27/2024 Dealing with Stress 3 08/27/2024 Comments Unknown Sex and Gender Information Value Date Recorded Sex Assigned at Not on file Legal Sex 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
--- OUTSIDE RECORDS SUMMARY | 2025-04-18 11:57 | XMS_ITS | Continuity of Care Document ---
Author Organization [facility] Address [address] [place] [address] [address] [place] [address] Phone Care Team Providers Care Parer Name Role Phone Gu OD, Say Unavailable Unavailable Advance Directives Directive Yes / No Effective Date File Name No Information Encounters Encounter Description Practice Location Reason(s) For Visit Diagnoses Date Provider Providers Copied on Encounter Located within [facility], [id number] [place] [address] [address], [place], [place], [id number], [place] tel:[phone] SEC [facility] No Information [phone] Gu OD Say. [address] [facility] , [address], [place], [address], [place]. tel:[phone] Family History Family Member Type Diagnosis Age At Onset No Information Payers Payer name Insurance type Covered libertarian ID Authoriza tion(s) Medicaid [facility] [id number] Social History Type Description Quantity Date Captured [...]
== END 2025-04-18 11:32 | disposition home or self-care (01) ==
PROVIDERS: PCP Internal Medicine Gastroenterology; Visit Provider Internal Medicine Gastroenterology
DX: M47.892 Other spondylosis, cervical region (principal); M43.12 Spondylolisthesis, cervical region
CPT/HCPCS: 72040

== ENCOUNTER 2025-07-01 09:02 | Emergency (ER) | payer OTHER, SELFPAY ==
--- OUTSIDE RECORDS SUMMARY | 1999-11-03 04:45 | XMS_ITS | Continuity of Care Document ---
Author Organization [facility] Address [address] [place] [address] [address] [place] [address] Phone Care Team Providers Care Electrical Foreman Name Role Phone Gu OD, Say Unavailable Unavailable Advance Directives Directive Yes / No Effective Date File Name No Information Encounters Encounter Description Practice Location Reason(s) For Visit Diagnoses Date Provider Providers Copied on Encounter [facility], [id number] [place] [address] [address], [place], [place], [id number], [place] tel:[phone] [facility] No Information [phone] Gu OD Say. [address] [facility] , [address], [place], [address], [place]. tel:[phone] Family History Family Member Type Diagnosis Age At Onset No Information Payers Payer name Insurance type Covered green party ID Authoriza tion(s) Medicaid [facility] [id number] Social History Type Description Quantity Date Captured Comments Sex Female Smoking Status No Information Chief Complaint And Reason For Visit No Information Reason For Referral Reason For Referral No Information History Of Present Illness Encounter Date Complaint History Of Prese nt Illness No Information Functional Status Date Functional Assessmen t No Information Instructions Date Instruction Additional Infor mation No Information Assessments Type Assessment Date No Information Patient Care Teams Name Effective Dates (start - stop) Status Members No Information
--- OUTSIDE RECORDS SUMMARY | 1999-11-03 04:45 | XMS_ITS | Continuity of Care Document ---
Author Organization [facility] Address [address] [place] [address] [address] [place] [address] Phone Care Team Providers Care Admissions Evaluator Name Role Phone Gu OD, Say Unavailable Unavailable Advance Directives Directive Yes / No Effective Date File Name No Information Encounters Encounter Description Practice Location Reason(s) For Visit Diagnoses Date Provider Providers Copied on Encounter [facility], [address] [place] [address] [address], [place], [place], [id number], [place] tel:[phone] [facility] No Information [phone] Gu OD Say. [address] [facility] , [address], [place], [address], [place]. tel:[phone] Family History Family Member Type Diagnosis Age At Onset No Information Payers Payer name Insurance type Covered green party ID Authoriza tion(s) Medicaid [facility] [id number] Social History Type Description Quantity Date Captured [...]
[2025-07-01 09:06] VITALS: BP 150/96; PULSE 96; RESP 14; TEMP 37.7; O2SAT 100
[2025-07-01 09:15] VITALS: O2SAT 96
[2025-07-01 09:21] VITALS: BP 150/96; PULSE 96; RESP 14; TEMP 37.7; O2SAT 96
--- OUTSIDE RECORDS SUMMARY | 2025-07-01 09:24 | XMS_ITS | Clinical Summary ---
Author Organization [facility] Address [address] [place], [place] [id number] Phone [email or web address] Care Team Providers Care Child Adolescent Psychiatrist Name Role Phone Unavailable Primary Care Provider [...] on file Legal Sex Female 11:16 AM PUBLIC HEALTH ADVISOR Gender Identity Not on file Sexual Orientation [...]
--- OUTSIDE RECORDS SUMMARY | 2025-07-01 09:24 | XMS_ITS | Clinical Summary ---
Author Organization [facility] Address [address] [place] [address] Care Team Providers Care Inspector Materials And Processes Name Role Phone Fabiana Jaffe MD Primary Care Provider [phone] Source Comments [facility],non-owned Affiliates and Associated Physician Practices is amultiple site organization consisting of ambulatory clinics and hospital sitesin [place], [place], [place] and [place]. This disclosure is being madepursuant to the Care Everywhere program and may not contain all information available regarding this patient. Last updated 18.[facility] Allergies Active Allergy Reactions Criticality Noted Date [...] Problem Noted Date Diagnosed Date Dizzy 05/13/2010 Encounters Date Type Department Care Team Description 04/27/2025 Telephone [facility] [address] [place] [address] Marifer Hutson Appointment from Last 3 Months Social History Tobacco Use Types Packs/Day Years Used Date Smoking Tobacco: Every Day Cigarettes 0.5 20 Alcohol Use Standard Drinks/Week Comments No 0 (1 standard drink = 0.6 oz pur e alcohol) Comments Unknown Sex and Gender Information Value Date Recorded Sex Assigned at Not on file Legal Sex Female 5:33 AM ONCOLOGY REP Gender Identity Not on file Sexual Orientation [...] series) 1985 PNEUMOCOCCAL VACCINE 50+ (1 of 2 - PCV) 1985 PAP SMEAR 1987 ZOSTER VACCINE (1 of 2) 2016 DEPRESSION SCREENING 10/20/2024 COVID-19 VACCINE (1 - 2023-2 5 season) 2025 INFLUENZA VACCINE (#1) 2025 HIB VACCINE Aged Out No longer [...] on patient's age to complete this topic Insurance Member Subscriber Plan / Payer (Ef fective 2023-Present) Name:Jennifer Wing Relation to Subscriber:Self Name:Jennifer Wing Payer ID:[id number] (NAIC) Type:PPO Address: [address] Care Teams Inspector Materials And Processes Relationship Specialty Start Date End Date Fabiana Jaffe MD [address] [place] [address] PCP - General Gastroenterology 04/27/25
--- NOTE | 2025-07-01 09:44 | ED_ITS ---
HPI - General Adult General Chief complaint: Upper Respiratory Infection Stated complaint: sore throat Time Seen by Provider: 07/01/25 09:04 Source: patient Mode of arrival: ambulatory Limitations: no limitations History of Present Illness HPI narrative: Patient is a 59-year-old female who presents the ED with report of URI symptoms, vaginal discharge. Patient reports she has had intermittent URI symptoms, sinus pressure/congestion, ear pressure, rhinorrhea, sore throat for the last 1.5 weeks. Notes she has history of seasonal allergies. Denies fevers, known sick contacts. Also reports having abnormal vaginal discharge and vaginal irritation since last night. Reports slight burning in her vaginal region. Reports orange discoloration to urine. Denies itching. Denies vaginal bleeding. Notes she is sexually active, but has contracted an STD from her current partner in the past. Would like to be tested for STDs. Related Data Allergies Allergy/AdvReac Type Severity Reaction Status Date / Time erythromycin base Allergy Unknown Swelling Verified 07/01/25 09:22 of Lip/Tongue/Throat Review of Systems Review of Systems: All systems reviewed & are unremarkable except as noted in HPI. All systems reviewed & are unremarkable except as noted in HPI and below PMFSH Family History Family History Other Cerebrovascular accident Diabetes mellitus Family history of cardiovascular disease Hypertension Social History Social History Smoking status: Never smoker Alcohol intake: current Exam Narrative: GENERAL: Well appearing, morbidly obese with BMI of 48.3, non-toxic, in no acute distress. HEAD: Normocephalic, atraumatic. ENT: TMs clear bilaterally, no significant erythema or bulging of TMs, no significant posterior pharynx erythema. No tonsillar hypertrophy or exudate. RESPIRATORY: Airway patent, respirations nonlabored. Clear to auscultation bilaterally, no rales, rhonchi, wheezing. CARDIOVASCULAR: Regular rate and rhythm without murmurs, rubs, or gallops. MUSCULOSKELETAL: Moves all extremities. No gross deformities. SKIN: Warm, dry, normal color. NEURO: A&O X3. Speech clear. Cranial nerves II-XII grossly intact. Steady gait. No ataxic movements. PSYCHIATRIC: Appropriate mood and affect. Normal interaction. Course Vital Signs Vital signs: Vital Signs Temperature 99.8 F H 07/01/25 09:06 Pulse Rate 96 07/01/25 09:06 Respiratory Rate 14 07/01/25 09:06 Blood Pressure 150/96 H 07/01/25 09:06 Pulse Oximetry 100 07/01/25 09:06 Oxygen Delivery Room Air 07/01/25 09:06 Temperature 99.8 F H 07/01/25 09:21 Pulse Rate 96 07/01/25 09:21 Respiratory Rate 14 07/01/25 09:21 Blood Pressure 150/96 H 07/01/25 09:21 Pulse Oximetry 96 07/01/25 09:21 Oxygen Delivery Room Air 07/01/25 09:15 Medical Decision Making MDM Narrative Medical decision making narrative: Patient presented to ED with URI symptoms X 1.5 weeks, abnormal vaginal discharge since last night. Vital signs are stable upon arrival. Patient denied fevers at home, denies feeling febrile currently. UA concerning for infection. Sent for culture. Will treat STD testing negative Patient declined pelvic exam. Viral swabs resulted positive for COVID 19 Patient updated on lab and imaging results. Will be discharged on oral antibiotics for UTI. Discussed COVID precautions, management at home. Given strict return precautions. Patient in agreement with plan. Feels comfortable going home. No respiratory distress or systemic signs of infection to suggest need for further workup at this time. Patient discharged in stable condition. Medical Records Medical records reviewed: Yes I reviewed the external patient's medical records. Vital Signs Vital Signs: Vital Signs Temperature 99.8 F H 07/01/25 09:06 Pulse Rate 96 07/01/25 09:06 Respiratory Rate 14 07/01/25 09:06 Blood Pressure 150/96 H 07/01/25 09:06 Pulse Oximetry 100 07/01/25 09:06 Oxygen Delivery Room Air 07/01/25 09:06 Temperature 99.8 F H 07/01/25 09:21 Pulse Rate 96 07/01/25 09:21 Respiratory Rate 14 07/01/25 09:21 Blood Pressure 150/96 H 07/01/25 09:21 Pulse Oximetry 96 07/01/25 09:21 Oxygen Delivery Room Air 07/01/25 09:15 Lab Data Lab results reviewed: Yes I reviewed the patient's lab results. Labs: Lab Results 07/01/25 07/01/25 Range/Units 09:42 09:57 Urine Color Yellow (Yellow) Urine Appearance Cloudy H (Clear) Urine pH 6.0 (5.0-9.0) Ur Specific [place] 1.015 (1.001-1.035) Urine Protein Trace (Negative) mg/dL Urine Glucose (UA) Negative (Negative) mg/dL Urine Ketones Negative (Negative) mg/dL Ur Blood (Man) Negative (Negative) Urine Nitrate Negative (Negative) Urine Bilirubin Negative (Negative) Urine Urobilinogen 1.0 (<2.0) mg/dL Add Ur Microanalysis Reviewed Leukocyte Esterase Rfl 2+ H (Negative) DAMARIS/UL Urine RBC 0-2 (0-2) /hpf Urine WBC 21-50 H (0-3) /hpf Ur Squamous Epith Cells Many H (Few) /hpf Urine Bacteria 1+ H /hpf Urine Casts 0-2 POC Urine HCG, Qual Negative (Negative) C. trachomatis (PCR) Not detected (NOT DETECTE) Influenza A (RT-PCR) Negative (Negative) Influenza B (RT-PCR) Negative (Negative) N. gonorrhoeae (PCR) Not detected (NOT DETECTE) RSV (RT-PCR) Negative (Negative) SARS-CoV-2 RNA (RT-PCR) Positive A (Negative) T. vaginalis (PCR) Not detected (NOT DETECTE) Discharge Plan Discharge Clinical Impression: COVID-19 UTI (urinary tract infection) Qualifiers: Urinary tract infection type: site unspecified Hematuria presence: without hematuria Qualified Code(s): N39.0 - Urinary tract infection, site not specified Patient Disposition: Home Condition: Stable Instructions: Antibiotic Form, Urinary Tract Infection in Women (ED), COVID-19 (Coronavirus Disease 2019) (ED), How to Recover from COVID-19 at Home (ED) Additional Instructions: Take antibiotics as prescribed for UTI. You were diagnosed with COVID 19 today. Isolate at home as you are contagious. Stay well-hydrated at home. Recommend electrolyte rich fluids, Gatorade, Pedialyte, body armor. Utilize Tessalon Perles as needed for cough. Tylenol and Ibuprofen for discomfort and/or fevers. Recommend huoh-fdb-maumfah cough and cold medicines for symptom relief, Delsym, Mucinex, DayQuil, NyQuil, Sudafed, Robitussin, TheraFlu. Follow with primary care doctor upon resolution of symptoms. Return to the ED if you experience chest pain, difficulty breathing, unable to keep down food or drink, severe pain, or any other symptoms of concern. Patient Language: Azerbaijani Prescriptions: New cephalexin 500 mg capsule 500 mg PO Q6H 7 Days Qty: 28 0RF benzonatate 200 mg capsule 200 mg PO TID PRN (Reason: cough) Qty: 15 0RF Follow-up/Referrals: Ld,Fabiana Cloud MD [Primary Care Provider] Time of Disposition: 11:32
[2025-07-01 09:59] LABS: BEDSIDEPREGUCG Negative (Negative)
[2025-07-01 10:14] LABS: Add Urine Microscopic? YES; Appearance Urine Cloudy (Clear); Glucose Urine UA Negative (Negative); Leukocyte Esterase Ur 2+ LEU/UL (Negative); Need Manual Microscopic Reviewed; Nitrate Urine Negative (Negative); Non Pathogenic Casts 0-2; Specific Grav Ur 1.015 (1.001-1.035)
[2025-07-01 10:29] LABS: Influenza A QL RT-PCR Negative (Negative); Influenza B QL RT-PCR Negative (Negative); RSV RNA, RT-PCR Negative (Negative); SARS-CoV-2 RNA PCR Positive (Negative)
[2025-07-01 11:02] LABS: Trichomonas Vag PCR NOT DETECTED (NOT DETECTE)
== END 2025-07-01 11:46 | disposition home or self-care (01) ==
PROVIDERS: Emergency Provider Physician Assistant; PCP Internal Medicine Gastroenterology
DX: U07.1 COVID-19 (principal); N39.0 Urinary tract infection, site not specified
CPT/HCPCS: 81001; 81025; 87086; 87491; 87591; 87637; 87661; 99284